=== PATIENT | male | born 1965 | race Caucasian/White ===

== ENCOUNTER 2019-03-07 07:37 | Day surgery (SDC) | payer BC, OTHER ==
[2019-03-02 18:39] VITALS: BMI 33.9
[2019-03-07] MEDS ORDERED: oxyCODONE HCL 10 MG SUSTAINED ACTING TABLET PO ONE (08:00)
[2019-03-07] MEDS ORDERED: MIDAZOLAM HCL 2 MG/2 ML SINGLE DOSE VIAL ONE ×2 (09:11→09:20)
[2019-03-07] MEDS ORDERED: BUPIVACAINE HCL/PF 0.5% (5 MG/ML) 30 ML VIAL IJ ONE (09:12)
[2019-03-07] MEDS ORDERED: DEXAMETHASONE SOD PHOSPHATE/PF 10 MG/ML SDV ONE (09:12)
[2019-03-07] MEDS ORDERED: PROPOFOL 20 ML ONE (09:20)
[2019-03-07] MEDS ORDERED: ROCURONIUM BROMIDE 50 MG/5 ML VIAL ONE (09:25)
[2019-03-07] MEDS ORDERED: SUCCINYLCHOLINE CHLORIDE 200 MG/10 ML SYRINGE ONE (09:25)
[2019-03-07] MEDS ORDERED: methylPREDNISolone ACET (DEPO) 40 MG/1 ML VIAL ONE (09:31)
[2019-03-07] MEDS ORDERED: LIDOCAINE 1%/EPI 1:100000 (50 ML MULTI DOSE VIAL) INF ONE (10:30)
[2019-03-07] MEDS ORDERED: methylPREDNISolone ACET (DEPO) 40 MG/1 ML VIAL IM ONE (11:32)
[2019-03-07] MEDS ORDERED: oxyCODONE HCL 5 MG TABLET PO PRN (11:45)
[2019-03-07] MEDS ORDERED: ONDANSETRON 4 MG/2 ML VIAL IVPUSH PRN (11:45)
[2019-03-07] MEDS ORDERED: LACTATED RINGERS SOLUTION 1,000 ML IV SCH (11:45)
[2019-03-07] MEDS ORDERED: GUM MASTIC/STORAX/MSAL/ALCOHOL 1 DRP DROPSBTL MC ONE (11:50)
--- NOTE | 2019-03-07 12:15 | OP ---
Operative Note - Note: Operative Date: 03/07/19 Pre-Operative Diagnosis: lumbar stenosis Operation: laminecotmy of L4to L5 and L5- S1 Surgeon: Sony North Double Backer: Nalini Garcia Anesthesiologist/PATIENT SERVICE REP: Nola Tomlinson Anesthesia: Spinal Estimated Blood Loss (mls): 20 Fluid Volume Replaced (mls): 1,000 Operative Report Dictated: Yes
--- NOTE | 2019-03-07 12:16 | SURG ---
Surgery Bumper And Painter Note Bumper And Painter: Nalini Garcia PA-C Date of Service: 03/07/19 Diagnosis: lumbar stenosis Procedure: laminectomy of L4-L5 and L5- S1 I was present for the entirety of the operative procedure. For further detail, please refer to operative report. Visit type - Case Type Case Type: Scheduled - Emergency Emergency Visit: No - New patient This patient is new to me today: Yes Date on this admission: 03/07/19 - Critical Care Critical Care patient: No
[2019-03-07 14:27] VITALS: BP 129/74; PULSE 78; TEMP 98.7
--- NOTE | 2019-03-07 14:45 | OP ---
DATE OF OPERATION: 03/07/2019 PREOPERATIVE DIAGNOSIS: Spinal stenosis, L4-5, L5-S1. POSTOPERATIVE DIAGNOSIS: Spinal stenosis, L4-5, L5-S1. PROCEDURE PERFORMED: Laminectomy, L4-5, L5-S1. SURGEON: Sony North MD ELEMENTARY ASSISTANT TEACHER: PAT Bryant ESTIMATED BLOOD LOSS: 50 mL. IV FLUIDS: Per Anesthesia. ANESTHESIA: Spinal/TLIP. COMPLICATIONS: There were none. DISPOSITION: Patient brought to the PACU in stable condition. INDICATION FOR SURGERY: The patient is a 54-year-old gentleman who has been suffering from pain from his back down his legs. X-rays and MRI were completed, which noted that he had spinal stenosis at L4-5 and L5-S1. He had gone through an exhaustive course of treatment for this, which included medications, physical therapy, as well as injections. Unfortunately his pain continued to persist despite all this. At this point, risks, benefits and alternatives were discussed and the patient consented to surgery. OPERATIVE NOTE: The patient was brought to the operating room by anesthesia staff. After appropriate patient identification was performed, spinal anesthesia was given. A TLIP block was also given. The patient was able to position himself prone onto the OR table, with all areas of bony prominences well padded. At this time, 2 needles were placed onto his back to yessy off the L4 to S1 sections. X-ray was taken to confirm this was correct. The needles were removed and 10 mL of lidocaine with epinephrine was injected into his back. At this time, his back was prepped and draped in a sterile manner. At this point, timeout was completed. An incision was made from the top of L4 down to the bottom of S1. Dissection was carried down to the fascia. The fascia was split open at this time and the appropriate retractors were then placed in. A spinal needle was placed onto the L4 lamina to yessy off the L4-5 level. X-ray was taken to confirm this is correct. The needle was removed. The interspinous ligament at L4-5 and L5-S1 was removed. The spinous process of L5 was removed. The lamina of L5 was removed. The flavum of L5 was removed. A complete decompression was performed such that by the end of the procedure, the L5 and S1 nerve roots were well decompressed. A cyst was visualized. It was taken off the dura and it was removed at this time. By the end of the procedure, all bleeding was well controlled. Steroid was placed over the nerve root, FloSeal was placed over that. The fascia was closed with a number 1 Vicryl suture. The subcutaneous tissue was closed with 2-0 Vicryl suture. Skin was closed with 3-0 Monocryl suture. Dermabond was applied, Steri-Strips were applied, a sterile dressing was applied. The patient was placed supine on the OR bed, brought to the PACU in stable condition. SONY NORTH M.D. [id number]
== END 2019-03-07 14:00 | disposition home or self-care (01) ==
LOC: FASU 07:37
PROVIDERS: ATTEND Orthopaedic Surgery Orthopaedic Surgery of the Spine
PROC: 01NB0ZZ Release Lumbar Nerve, Open Approach (ICD-10-PCS; principal; 2019-03-07 10:44)
DX: M48.061 Spinal stenosis, lumbar region without neurogenic claudication (principal); M48.07 Spinal stenosis, lumbosacral region
CPT/HCPCS: 72100-TC-FY; 94760